=== PATIENT | male | born 1955 | race Caucasian/White ===

== ENCOUNTER → 2024-01-08 08:38 | Outpatient (REF) | payer MEDICARE, OTHER, SELFPAY | LOC: HWRAD 08:38 | PROVIDERS: ATTENDING PHYSICIAN Dermatology; FAMILY PHYSICIAN Family Medicine | DX: Z85.820 Personal history of malignant melanoma of skin (principal) | CPT/HCPCS: 71046 ==

== ENCOUNTER → 2025-01-23 10:29 | Outpatient (REF) | payer MEDICARE, OTHER, SELFPAY | LOC: HWRAD 10:29 | PROVIDERS: ATTENDING PHYSICIAN Dermatology; FAMILY PHYSICIAN Family Medicine | DX: Z85.820 Personal history of malignant melanoma of skin (principal) | CPT/HCPCS: 71046 ==